=== PATIENT | female | born 1975 | race Caucasian/White ===

== ENCOUNTER 2020-08-12 22:17 | Emergency (ER) | payer SELFPAY ==
[~2020-08-12] VITALS: Ht 121.9 cm; Wt 62.0 kg
[2020-08-12 22:30] VITALS: BP 142/100
--- NOTE | 2020-08-12 22:41 | PHYS DOC ---
Past Medical History Past Medical History: No Pertinent History Past Surgical History: Other Additional Past Surgical Histo: neck surgery Smoking Status: Current Every Day Smoker Alcohol Use: Occasionally Drug Use: None General Adult EDM: Chief Complaint: ABSCESS HPI: HPI: Patient is a 44 year old female who presents to the ED today complaining of an infected wound on the left chaudhry that she noted yesterday. Patient states she does not know how it occurred, she does not know if she bumped her left chaudhry on something while she was moving or something bit her. Denies any fever. Review of Systems: Review of Systems: Constitutional: Denies fever or chills. [] Musculoskeletal: Denies back pain or joint pain. [] Integument: Reports left chaudhry open wound Neurologic: Denies headache, focal weakness or sensory changes. [] ] Psychiatric: Denies depression or anxiety. [] Heart Score: C/O Chest Pain: N/A Risk Factors: Risk Factors: DM, Current or recent (<one month) smoker, HTN, HLP, family history of CAD, obesity. Risk Scores: Score 0 - 3: 2.5% MACE over next 6 weeks - Discharge Home Score 4 - 6: 20.3% MACE over next 6 weeks - Admit for Clinical Observation Score 7 - 10: 72.7% MACE over next 6 weeks - Early Invasive Strategies Allergies: Allergies: Allergies Coded Allergies Type Severity Reaction Last Updated Verified naproxen Allergy Severe anaphylaxis 03/23/14 Yes Physical Exam: PE: Constitutional: Well developed, well nourished, no acute distress, non-toxic appearance. [] Skin: Left distal chaudhry with an open wound roughly 2 x 1 cm with surrounding approximately 3 cm of cellulitis. The wound is draining trace amount of yellow bloody material. +2 left pedal pulse. Cap refill less than 2 seconds to left toes. Sensation intact to the left lower extremity. Back: No tenderness, no CVA tenderness. [] Extremities: No tenderness, no cyanosis, no clubbing, ROM intact, no edema. [] Neurologic: Alert and oriented X 3, normal motor function, normal sensory function, no focal deficits noted. [] Psychologic: Affect normal, judgement normal, mood normal. [] EKG: EKG: [] Radiology/Procedures: Radiology/Procedures: [] Course & Med Decision Making: Course & Med Decision Making Pertinent Labs and Imaging studies reviewed. (See chart for details) This is a 44-year-old female patient presenting to the ED today with an open wound with cellulitis of the left chaudhry. Tetanus was updated, discharged on clindamycin. Follow-up with PCP. Wound care instructions and return precautions provided Pia Disclaimer: Pia Disclaimer: This electronic medical record was generated, in whole or in part, using a voice recognition dictation system. Departure Departure Impression: Primary Impression: Cellulitis of lower extremity Qualified Codes: L03.116 - Cellulitis of left lower limb Additional Impression: Infected wound of left lower leg due to nonvenomous insect bite Disposition: 01 DC HOME SELF CARE/HOMELESS Condition: STABLE Referrals: NON,STAFF (PCP) follow up with your doctor in 1-2 weeks Patient Instructions: Cellulitis, [id number] Additional Instructions: You have a wound with cellulitis on your left chaudhry. Keep the area clean and dry. You can wash the area with regular soap and water. Please take the prescribed antibiotics until completed. Come back to the ED at any point symptoms worsen. Scripts Clindamycin Hcl (CLINDAMYCIN HCL) 300 Mg Capsule 1 CAP PO TID, #21 CAP Prov: SEVERO DELUCA APRN 08/12/20 SEVERO DELUCA APRN Aug 12, 2020 22:41
[2020-08-12] MEDS ORDERED: CLIN300C9 PO (22:43)
[2020-08-12] MEDS ORDERED: DIPH,PERTUSS(ACELL),TET VAC/PF 0.5 ML SYRINGE. VAX IM ONE (23:30)
[2020-08-12] MEDS ORDERED: CLINDAMYCIN HCL 150 MG CAPSULE. PO ONE (23:30)
== END 2020-08-12 23:33 | disposition home or self-care (01) ==
LOC: ER 22:17
DX: S80.862A Insect bite (nonvenomous), left lower leg, initial encounter (principal); L03.116 Cellulitis of left lower limb; F17.200 Nicotine dependence, unspecified, uncomplicated; Z98.890 Other specified postprocedural states; Z88.8 Allergy status to other drugs, medicaments and biological substances; W57.XXXA Bitten or stung by nonvenomous insect and other nonvenomous arthropods, initial encounter; Y93.89 Activity, other specified; Y92.89 Other specified places as the place of occurrence of the external cause; Y99.8 Other external cause status
CPT/HCPCS: 90471; 90715; 99283